=== PATIENT | female | born 1955 | race Two or more races ===

== ENCOUNTER 2016-10-25 13:33 | Emergency (ER) | payer OTHER ==
[~2016-10-25] VITALS: Ht 157.5 cm; Wt 93.0 kg
[~2016-10-25 13:33] MED LIST: NORCO 5-325 TA1 EACH ORAL
[2016-10-25 14:06] VITALS: BP 108/65
[2016-10-25] MEDS ORDERED: METFORMIN HCL1000 M1 ORAL (14:07)
[2016-10-25] MEDS ORDERED: Insulin SQ (14:07)
[2016-10-25] MEDS ORDERED: Tylenol #3 tab (300mg/30mg) ORAL ONE (14:15)
--- NOTE | 2016-10-25 14:17 | Emergency Room Report ---
History of Present Illness General Chief Complaint: Pain Source: Patient, Family Member Present Illness HPI The patient is a 61-year-old female presenting for right knee pain which began 1 month prior. She was seen at an outpatient clinic for this symptom 3 weeks prior where an ultrasound was done to rule out DVT. This was unremarkable. X- ray of the knee at that time had findings consistent with arthritis. The patient was told to take Tylenol and Motrin which only slightly helps. The patient states that swelling has now decreased but pain has persisted. It is described as a 10 out of 10 dull ache to the right inside of the knee. Pain worse with walking. It does not radiate. She denies any other symptoms including nausea, vomiting, fever, chills, numbness or tingling, calf pain, rash Allergies: Coded Allergies: No Known Allergies (Verified Allergy, Mild, 10/29/06) Patient History Past Medical History: see triage record Pertinent Family History: none Reviewed Nursing Documentation: PMH: Agreed, PSxH: Agreed Nursing Documentation-PMH Hx Hypertension: Yes Hx Diabetes: Yes Review of Systems All Other Systems: negative except mentioned in HPI Physical Exam Vital Signs Date Time Temp Pulse Resp B/P Pulse Ox O2 Delivery O2 Flow Rate FiO2 10/25/16 13:51 97.9 84 16 108/65 98 Room Air Sp02 EP Interpretation: reviewed, normal General Appearance: no apparent distress, alert, GCS 15, non-toxic Head: normocephalic, atraumatic Eyes: bilateral eye PERRL, bilateral eye normal inspection ENT: hearing grossly normal, normal pharynx, no angioedema, normal voice Musculoskeletal: normal range of motion, no calf tenderness, tender - TTP over the R knee joint line Neurologic: alert, oriented x3, responsive, motor strength/tone normal, sensory intact, speech normal Psychiatric: judgement/insight normal, memory normal, mood/affect normal, no suicidal/homicidal ideation Skin: normal color, no rash, warm/dry, well hydrated Medical Decision Making PA Attestation Dr. Paul is my supervising physician. Patient management was discussed with my supervising physician Diagnostic Impression: Primary Impression: Osteoarthritis Qualified Codes: M17.11 - Unilateral primary osteoarthritis, right knee ER Course The patient is a 61-year-old female with a history of arthritis presenting for any pain Ddx considered include but not limited to arthritis, sprain/strain, fracture, contusion PE: NAD. R knee: Full AROM. No edema. No discoloration. Normal gait. TTP over anterior joint line. Pt is DC'ed home with a prescription for tylenol #3 and will FU with PMD and orthopedics. ER precautions given Last Vital Signs Date Time Temp Pulse Resp B/P Pulse Ox O2 Delivery O2 Flow Rate FiO2 10/25/16 14:06 97.9 81 16 108/65 98 Room Air Status: improved Disposition: HOME, SELF-CARE Condition: Improved Scripts Acetaminophen With Codeine (T#3) (TYLENOL #3 TAB*) Y Tab 1 TAB ORAL Q6HR Y for For Pain, #10 TAB Prov: DARLIN FAIRBANKS 10/25/16 DARLIN FAIRBANKS Oct 25, 2016 14:17
[2016-10-25] MEDS ORDERED: ACETAMINOPHEN-1 EAC1 ORAL (15:27)
[2016-10-25 16:34] VITALS: BP 108/65
== END 2016-10-25 16:36 | disposition home or self-care (01) ==
LOC: EMR 14:15
DX: M17.11 Unilateral primary osteoarthritis, right knee (principal); I10 Essential (primary) hypertension; E11.9 Type 2 diabetes mellitus without complications
CPT/HCPCS: 99283